=== PATIENT | male | born 1960 | race Caucasian/White ===

== ENCOUNTER 2016-09-06 00:07 | Emergency (ER) | payer BC, OTHER ==
[2016-09-06] MEDS ORDERED: CEPHALEXIN MONOHYDRATE 250 MG CAPSULE PO ONE (01:12)
--- NOTE | 2016-09-06 01:13 | ERNOTE ---
Lower Extremity HPI - General Lower Extremities Pain: 1st toe: right - bottom of toe bleeding Time Seen by Provider: 09/06/16 00:43 Source: patient Exam Limitations: no limitations - Immun/Allergies/Home Medications Immunizations: IMMUNIZATION HX Immunizations Up to Date Yes History of Influenza Vaccine Yes Hx Pneumococcal Vaccination No Allergies/Adverse Reactions: Allergies Allergy/AdvReac Type Severity Reaction Status Date / Time No Known Allergies Allergy Verified 04/10/16 09:48 Home Medications: HOME MEDICATIONS Insulin Aspart [Novolog] 35 units SC TID 07/26/14 [Last Taken Unknown] Insulin Glargine,Hum.rec.anlog [Lantus] 75 units SQ HS 07/26/14 [Last Taken Unknown] Omeprazole [Prilosec] 20 mg PO DAILY 07/26/14 [Last Taken Unknown] metFORMIN HCL [Glucophage] 1,000 mg PO BID 07/26/14 [Last Taken Unknown] traMADol HCL [Ultram] 100 mg PO BID 07/26/14 [Last Taken Unknown] Aspirin [Aspirin Enteric Coated] 81 mg PO DAILY 09/18/15 [Last Taken Unknown] Atorvastatin Calcium [Lipitor] 10 mg PO HS 09/18/15 [Last Taken Unknown] Blood Sugar Diagnostic, Drum [Accu-Chek Compact] 1 each MC DAILY 09/18/15 [Last Taken Unknown] Gabapentin [Neurontin] 300 mg PO DAILY 09/18/15 [Last Taken Unknown] Lisinopril [Zestril] 40 mg PO DAILY 09/18/15 [Last Taken 04/10/16 08:00] Hydrochlorothiazide [Microzide] 6.25 mg PO DAILY 03/27/16 [Last Taken 04/10/16 08:00] Ibuprofen [Motrin] 800 mg PO HS 03/27/16 [Last Taken Unknown] Cephalexin Monohydrate [Keflex] 500 mg PO QID #40 cap 09/06/16 [Last Taken Unknown] - History of Present Illness Narrative: 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 Absent: rash Neurological: Present: numbness - neuropathy Hematologic/Lymphatic: Absent: easy bruising, easy bleeding Psych: Present: no symptoms reported - Patient's Past Medical History Patient History - Medical: Diabetes Type 2 Patient History - Cardiac/Respiratory: Hypertension, Hyperlipidemia Patient History - Cancer: No Hx of Cancer Patient History - Surgical Procedures: Back Surgery, Colonoscopy, EGD, Other Patient History - Other: None - Family History Brother Family History - Medical: Other Family History - Cardiac/Respiratory: No pertinent hx Father Family History - Medical: , No pertinent hx Family History - Cardiac/Respiratory: Other Mother Family History - Medical: No pertinent hx Family History - Cardiac/Respiratory: Hypertension Sister Family History - Medical: No pertinent hx, Other Family History - Cardiac/Respiratory: No pertinent hx daughter Family History - Medical: No pertinent hx Family History - Cardiac/Respiratory: No pertinent hx son Family History - Medical: No pertinent hx, Other Family History - Cardiac/Respiratory: No pertinent hx - Social History Living Situations: spouse Smoking Status: Former smoker Have you smoked in the past 12 months: No Do you dip or chew tobacco: No Alcohol Use: none Drug Use: none - Immunizations Immunizations Up to Date: Yes Hx Pneumococcal Vaccination: No History of Influenza Vaccine: Yes Physical Exam - Physical Exam General Appearance: Present: wd/wn, alert, no apparent distress Ears, Nose, Throat: Present: normal ENT inspection Respiratory: Present: no respiratory distress, no accessory muscle use Extremity Exam: Present: non-tender, no edema Neurological Exam: Present: alert, oriented, normal mood/affect Skin Exam: Present: other - right great toe has blister on plantar surface 3.5 x 3 cm ruptured. Base is beefy red, no drainage or bleeding. Other toes, and foot on the right and left foot and toes appear normal. All nails are thickened and discolored with some grosly deformed ED Progress - Vital Signs Vital Signs: Vital Signs 09/06/16 00:11 Temperature 35.6 C L Pulse Rate 94 Respiratory 18 Rate Blood Pressure 160/74 O2 Sat by Pulse 97 Oximetry - Progress/Reassessment Chief Complaint: Lower Extremity Pain/ Injury Procedures Date and Time: Debridement of blistered skin of right great toe. taken off with sterile scissors and forceps skin below is hyperemic, no bleeding, no exudate Complications: Pt marcy procedure well Departure Clinical Impression: Blister - Departure Disposition: Home Follow Up Needed Condition: Good Instructions: Blisters Additional Instructions: change bandage twice a day. apply antibiotic ointment sparingly so that it is not kept wet. See your regular doctor as soon as possible next week Referrals: Radhames Knott DO [Primary Care Provider] - Prescriptions: Cephalexin Monohydrate [Keflex] 500 mg PO QID #40 cap
[2016-09-06] MEDS ORDERED: CEPHALEXIN MONOHYDRATE 250 MG CAPSULE ONE (01:14)
[2016-09-06 01:15] VITALS: BP 145/65
== END 2016-09-06 01:20 | disposition home or self-care (01) ==
LOC: ER 00:07
DX: S90.421A Blister (nonthermal), right great toe, initial encounter (principal); Z87.891 Personal history of nicotine dependence; E11.9 Type 2 diabetes mellitus without complications; Z79.4 Long term (current) use of insulin; I10 Essential (primary) hypertension; E78.5 Hyperlipidemia, unspecified

== ENCOUNTER 2016-10-29 13:44 | Emergency (ER) | payer BC, OTHER ==
[2016-10-29 13:55] VITALS: BP 152/70
[2016-10-29] MEDS ORDERED: AMOX TR/POTASSIUM CLAVULANATE 875 MG TABLET PO ONE (14:40)
[2016-10-29] MEDS ORDERED: AMOX TR/POTASSIUM CLAVULANATE 875 MG TABLET ONE (14:46)
--- NOTE | 2016-10-29 14:46 | ERNOTE ---
Animal Bite ER Date of Service: 10/29/16 Presenting Symptoms: scratched, bitten Time Seen by Provider: 10/29/16 14:19 Source: patient, RN notes reviewed Exam Limitations: no limitations Immunizations: IMMUNIZATION HX Immunizations Up to Date Yes History of Influenza Vaccine Yes Hx Pneumococcal Vaccination No Allergies/Adverse Reactions: Allergies No Known Allergies Allergy (Verified 10/29/16 13:55) Home Medications: HOME MEDICATIONS Insulin Aspart [Novolog] 35 units SC TID 07/26/14 [Last Taken Unknown] Insulin Glargine,Hum.rec.anlog [Lantus] 75 units SQ HS 07/26/14 [Last Taken Unknown] Omeprazole [Prilosec] 20 mg PO DAILY 07/26/14 [Last Taken Unknown] metFORMIN HCL [Glucophage] 1,000 mg PO BID 07/26/14 [Last Taken Unknown] traMADol HCL [Ultram] 100 mg PO BID 07/26/14 [Last Taken Unknown] Aspirin [Aspirin Enteric Coated] 81 mg PO DAILY 09/18/15 [Last Taken Unknown] Atorvastatin Calcium [Lipitor] 10 mg PO HS 09/18/15 [Last Taken Unknown] Blood Sugar Diagnostic, Drum [Accu-Chek Compact] 1 each MC DAILY 09/18/15 [Last Taken Unknown] Gabapentin [Neurontin] 300 mg PO DAILY 09/18/15 [Last Taken Unknown] Lisinopril [Zestril] 40 mg PO DAILY 09/18/15 [Last Taken 04/10/16 08:00] Hydrochlorothiazide [Microzide] 6.25 mg PO DAILY 03/27/16 [Last Taken 04/10/16 08:00] Ibuprofen [Motrin] 800 mg PO HS 03/27/16 [Last Taken Unknown] Amox Tr/Potassium Clavulanate [Augmentin 875-125 Tablet] 875 mg PO Q12H #20 tab 10/29/16 [Last Taken Unknown] Narrative: 56 y/o male ambulatory to the ED for a cat bite. He was rescuing a stray cat alongside the road when it bit him several times on his hands. He was also scratched on his lower lip. 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 He is to return to the vet's office after he leaves here to sweet pickle maker the cat's head and take it to the state lab to be tested for rabies. He reports having a tetanus vaccine within the last 10 years. His physician directed to come here to start the rabies series. Time (Timing): 10:00 Onset Time: today Location of Incident: Reports: street Animal Type: Reports: cat Animal Appearance: unhealthy Animal's Immunization Status: Reports: unknown Observation/Capture: Reports: animal unknown Context of Attack: Reports: approached animal Severity of injury: Reports: bitten, scratched Location of Injury: Reports: mouth - scratch, upper extremity (R), upper extremity (L) Prior Treatment: Denies: currently on antibiotics Review of Systems - Review of Systems Constitutional: Absent: recent illness, fever, chills, malaise EYE: Present: no symptoms reported ENT: Present: no symptoms reported Respiratory: Absent: shortness of breath, cough Cardiology: Present: no symptoms reported Gastrointestinal/Abdominal: Absent: nausea, vomiting Genitourinary: Present: no symptoms reported Musculoskeletal: Absent: joint pain, joint swelling Skin: Absent: rash, lumps, change in color Neurological: Absent: headache, dizziness/light-headedness Endocrine: Present: no symptoms reported Hematologic/Lymphatic: Absent: easy bruising, easy bleeding Psych: Present: no symptoms reported - Patient's Past Medical History Patient History - Medical: Diabetes Type 2 Insulin Dependent Patient History - Cardiac/Respiratory: Hypertension, Hyperlipidemia Patient History - Cancer: No Hx of Cancer Patient History - Surgical Procedures: Back Surgery, Colonoscopy, EGD, T & A, Other Patient History - Other: None - Family History Brother Family History - Medical: Other Family History - Cardiac/Respiratory: No pertinent hx Father Family History - Medical: , No pertinent hx Family History - Cardiac/Respiratory: Other Mother Family History - Medical: No pertinent hx Family History - Cardiac/Respiratory: Hypertension Sister Family History - Medical: No pertinent hx, Other Family History - Cardiac/Respiratory: No pertinent hx daughter Family History - Medical: No pertinent hx Family History - Cardiac/Respiratory: No pertinent hx son Family History - Medical: No pertinent hx, Other Family History - Cardiac/Respiratory: No pertinent hx - Social History Living Situations: home Abuse History: No History of abuse Psych History: Hx of Anxiety, Hx of Depression Smoking Status: Never smoker Do you dip or chew tobacco: No Alcohol Use: none Drug Use: none - Immunizations Immunizations Up to Date: Yes Hx Pneumococcal Vaccination: No History of Influenza Vaccine: Yes Physical Exam - Physical Exam General Appearance: Present: wd/wn, alert, no apparent distress Ears, Nose, Throat: Present: normal except - - small wound on lower lip Neck: Present: normal inspection, nontender, supple Respiratory: Present: no respiratory distress, normal breath sounds, no accessory muscle use, lungs clear Cardiovascular/Chest: Present: regular rate, rhythm, no murmur, normal peripheral pulses Extremity Exam: Present: non-tender, normal range of motion, no edema. Absent: joint redness, joint swelling Neurological Exam: Present: alert, oriented, normal mood/affect, no motor/ sensory deficits Skin Exam: Present: normal color, warm/dry, other - numerous small puncture wounds on both hands ED Progress - Vital Signs Patient's Vital Signs:: I have reviewed the patient's vital signs. Vital Signs: Vital Signs 10/29/16 13:51 Temperature 36.8 C Pulse Rate 92 Respiratory 16 Rate Blood Pressure 152/70 O2 Sat by Pulse 97 Oximetry - Progress/Reassessment Chief Complaint: Animal Bite Progress:: Unchanged Plan - Plan Plan: Discussed rabies prophylaxis - since the animal's head will be tested for rabies , the series can wait until these results are available. He is agreeable to contacting us with the results when available. First dose of Augmentin given here. Departure Clinical Impression: Cat bite Qualifiers: Encounter type: initial encounter Qualified Code(s): W55.01XA - Bitten by cat, initial encounter - Departure Disposition: Home Follow Up Needed Condition: Good Instructions: Animal Bite Additional Instructions: Keep wounds clean Take all 10 days of your antibiotic Follow up pending results of rabies testing from state lab Referrals: Radhames Knott DO [Primary Care Provider] - Prescriptions: Amox Tr/Potassium Clavulanate [Augmentin 875-125 Tablet] 875 mg PO Q12H #20 tab
--- OUTSIDE RECORDS SUMMARY | 2016-10-29 19:52 | XMS REPORT | Continuity of Care Document ---
:1960 Author Organization [facility] ([facility]) Address [address] [place] [address] Phone [phone] Care Team Providers Name Role Phone [facility], [facility] Primary Care Provider [phone] Source Comments This disclosure is being made pursuant to the Care Everywhere program, applicable federal and state laws, and may not contain all informaitonavailable regarding this patient.[facility] ([facility]) Active Allergies and Adverse Reactions Not on File Current Medications Not on file Active Problems Not on file Social History Tobacco Use Types Packs/Day Years Used Date Never Assessed Last Filed Vital Signs Vital Sign Reading Time Taken Blood Pressure 148/76 02/21/2006 4:03 PM CDT Pulse 80 02/21/2006 4:03 PM CDT Temperature - - Respiratory Rate 20 02/21/2006 4:03 PM CDT Height - - Weight 118.597 kg (261 lb 7.4 oz) 02/21/2006 4:03 PM CDT Body Mass Index - - Oxygen Saturation - - Plan of Care Health Maintenance Due Date Last Done Comments HCV Screening 1960 Hepatitis B Vaccine (1 of 3 - Primary Series) 1960 Tdap Vaccine 1972 MMR Vaccine 10/19/1979 Td Vaccine 10/19/1979 Lipid Disorder Screening 08/24/2003 08/24/1998 Colonoscopy 2011 Prostate Cancer Screening 10/19/2011 08/24/1998 Influenza Vaccine: Seasonal (#1) 03/11/2016 Results from Last 3 Months Not on file
== END 2016-10-29 14:49 | disposition home or self-care (01) ==
LOC: ER 13:44
DX: S61.452A Open bite of left hand, initial encounter (principal); S61.451A Open bite of right hand, initial encounter; W55.01XA Bitten by cat, initial encounter; Y92.410 Unspecified street and highway as the place of occurrence of the external cause; E11.9 Type 2 diabetes mellitus without complications; Z79.4 Long term (current) use of insulin; I10 Essential (primary) hypertension; E78.5 Hyperlipidemia, unspecified